=== PATIENT | female | born 1965 | race Caucasian/White ===

== ENCOUNTER 2018-05-25 02:26 | Outpatient (CLI) | payer OTHER, BC ==
[~2018-05-25 02:26] MED LIST: BUPR-83 PO; CEFD300C3 PO; CITA-278 PO; INSU100V36 SQ; LANTUS SQ; NORCO10T PO; RABE20TA25 PO; ROSU10TA PO; TOP100T PO; ZOLP5TAB8 PO
== END 2018-05-25 23:59 | disposition home or self-care (01) ==
LOC: DIABETIC 02:26
PROVIDERS: ATTEND Nurse Practitioner
DX: E11.65 Type 2 diabetes mellitus with hyperglycemia (principal); I10 Essential (primary) hypertension; Z79.4 Long term (current) use of insulin; Z88.1 Allergy status to other antibiotic agents; Z90.710 Acquired absence of both cervix and uterus; Z87.891 Personal history of nicotine dependence
CPT/HCPCS: G0108

== ENCOUNTER 2018-07-27 02:14 | Outpatient (CLI) | payer OTHER, BC ==
[~2018-07-27 02:14] MED LIST changes: -CITA-278 PO; +CITA20TA28 PO; -ROSU10TA PO; +ROSU10TA2 PO
== END 2018-07-27 23:59 | disposition home or self-care (01) ==
LOC: DIABETIC 02:14
PROVIDERS: ATTEND Nurse Practitioner
DX: E11.9 Type 2 diabetes mellitus without complications (principal); Z71.3 Dietary counseling and surveillance
CPT/HCPCS: G0108

== ENCOUNTER 2018-10-24 04:38 | Outpatient (CLI) | payer OTHER, BC | END 2018-10-24 23:59 | disposition home or self-care (01) | LOC: DIABETIC 04:38 | PROVIDERS: ATTEND Nurse Practitioner | DX: E11.65 Type 2 diabetes mellitus with hyperglycemia (principal); I10 Essential (primary) hypertension; Z79.4 Long term (current) use of insulin; Z79.899 Other long term (current) drug therapy; Z88.8 Allergy status to other drugs, medicaments and biological substances | CPT/HCPCS: G0108 ==

== ENCOUNTER 2019-01-25 02:22 | Outpatient (CLI) | payer OTHER, BC | END 2019-01-25 23:59 | disposition home or self-care (01) | LOC: DIABETIC 02:22 | PROVIDERS: ATTEND Nurse Practitioner | DX: E11.9 Type 2 diabetes mellitus without complications (principal); I10 Essential (primary) hypertension; Z79.4 Long term (current) use of insulin; Z87.891 Personal history of nicotine dependence; Z79.899 Other long term (current) drug therapy | CPT/HCPCS: G0108 ==

== ENCOUNTER 2019-05-03 02:02 | Outpatient (CLI) | payer OTHER, BC | END 2019-05-03 23:59 | disposition home or self-care (01) | LOC: DIABETIC 02:02 | PROVIDERS: ATTEND Nurse Practitioner | DX: E11.9 Type 2 diabetes mellitus without complications (principal); I10 Essential (primary) hypertension; Z79.4 Long term (current) use of insulin; Z87.891 Personal history of nicotine dependence; Z79.899 Other long term (current) drug therapy | CPT/HCPCS: G0108 ==